=== PATIENT | female | born 1995 ===

== ENCOUNTER 2017-04-23 09:57 | Emergency (ER) | payer BC ==
[2017-04-23 10:44] VITALS: BP 121/68
--- NOTE | 2017-04-23 11:03 | UC ---
Throat Pain/Nasal Roney HPI - HPI Summary HPI Summary: 21 year old female C/o sore throat, plugged ears, & congestion since Tuesday. Throat romero when she swallows. no cough. [ End ] - History of Current Complaint Chief Complaint: UCGeneralIllness Stated Complaint: CONGESTION Time Seen by Provider: 04/23/17 10:56 Hx Obtained From: Patient Hx Last Menstrual Period: 03/30/17 Onset/Duration: Gradual Onset - Allergies/Home Medications Allergies/Adverse Reactions: Allergies Allergy/AdvReac Type Severity Reaction Status Date / Time No Known Allergies Allergy Verified 04/23/17 10:40 Home Medications: Home Medications Drospirenone-Ethinyl Estradiol [Beyaz 3-0.02-0.451 mg] 1 tab PO DAILY 04/23/17 [ History Confirmed 04/23/17] Ibuprofen TAB* [Advil TAB*] 400 mg PO Q6H PRN 04/23/17 [History Confirmed ] PMH/Surg Hx/FS Hx/Imm Hx Previously Healthy: Yes - Surgical History Surgical History: None - Family History Known Family History: Positive: None - Social History Occupation: Student Lives: Dormitory/Roommates Alcohol Use: Weekly Substance Use Type: None Smoking Status (MU): Never Smoked Tobacco Review of Systems Constitutional: Fatigue ENT: Sore Throat, Ear Ache, Nasal Discharge, Sinus Congestion, Sinus Pain/ Tenderness All Other Systems Reviewed And Are Negative: Yes Physical Exam Triage Information Reviewed: Yes Appearance: Well-Appearing, No Pain Distress, Well-Nourished Vital Signs: Initial Vital Signs Temp 98.6 F 04/23/17 10:40 Pulse 93 04/23/17 10:40 Resp 16 04/23/17 10:40 BP 121/68 04/23/17 10:40 Pulse Ox 100 04/23/17 10:40 Vital Signs Reviewed: Yes Eye Exam: Normal ENT Exam: Normal ENT: Positive: Pharyngeal erythema, Nasal congestion, Nasal drainage, TMs normal , TM dull. Negative: Tonsillar swelling, Tonsillar exudate Dental Exam: Normal Neck exam: Normal Neck: Positive: 1 Respiratory Exam: Normal Cardiovascular Exam: Normal Musculoskeletal Exam: Normal Neurological Exam: Normal Psychological Exam: Normal Skin Exam: Normal Throat Pain/Nasal Course/Dx - Course Course Of Treatment: (+) strep - Differential Dx/Diagnosis Differential Diagnosis/HQI/PQRI: Laryngitis, Pharyngitis, Sinusitis, Tonsillitis , URI Provider Diagnoses: Strep pharyngitis Discharge - Discharge Plan Condition: Good Disposition: HOME Prescriptions: Amoxicillin PO (*) [Amoxicillin 875 MG (*)] 875 mg PO BID #20 tab Patient Education Materials: Strep Throat (ED)
== END 2017-04-23 11:28 | disposition home or self-care (01) ==
LOC: UCCORT 09:57
DX: J02.0 Streptococcal pharyngitis (principal)
CPT/HCPCS: 87651; 99202; G0463

== ENCOUNTER 2017-12-24 07:35 | Emergency (ER) | payer BC ==
[2017-12-24 07:51] VITALS: BP 122/74
--- NOTE | 2017-12-24 08:32 | UC ---
Respiratory Complaint HPI - HPI Summary HPI Summary: 22 yo WF c/o barky cough x 2 weeks and left pink eye, denies sick contacts but cough is keeping her up at night. Denies f/c - History of Current Complaint Chief Complaint: UCRespiratory Stated Complaint: COUGH/EYE COMP Time Seen by Provider: 12/24/17 08:08 Hx Obtained From: Patient Hx Last Menstrual Period: 12/16/17 ?: No Onset/Duration: Sudden Onset Timing: Constant Severity Initially: Moderate Severity Currently: Severe Pain Intensity: 0 Character: Cough: Nonproductive Associated Signs And Symptoms: Positive: Negative - Allergies/Home Medications Allergies/Adverse Reactions: Allergies Allergy/AdvReac Type Severity Reaction Status Date / Time No Known Allergies Allergy Verified 12/24/17 07:48 PMH/Surg Hx/FS Hx/Imm Hx - Additional Past Medical History Additional PMH: none Previously Healthy: Yes - Surgical History Surgical History: None - Family History Known Family History: Positive: None - Social History Alcohol Use: Weekly Substance Use Type: None Smoking Status (MU): Never Smoked Tobacco Review of Systems Constitutional: Negative Skin: Negative Eyes: Negative ENT: Negative Respiratory: Cough - x 2 weeks Cardiovascular: Negative Gastrointestinal: Negative Genitourinary: Negative Motor: Negative Neurovascular: Negative Musculoskeletal: Negative Neurological: Negative Psychological: Negative All Other Systems Reviewed And Are Negative: Yes Physical Exam Triage Information Reviewed: Yes Appearance: No Pain Distress Vital Signs: Initial Vital Signs Temp 37.2 C 12/24/17 07:46 Pulse 98 12/24/17 07:46 Resp 16 12/24/17 07:46 BP 122/74 12/24/17 07:46 Pulse Ox 98 12/24/17 07:46 Vital Signs Reviewed: Yes Eyes: Positive: Conjunctiva Inflamed - left, injected with clear yellowish d/c ENT: Positive: Normal ENT inspection Dental Exam: Normal Neck: Positive: Supple Respiratory: Positive: Other: - croupy, seal-like barky cough with mild stridor on expiration. Negative: Crackles, Wheezing Cardiovascular Exam: Normal Abdominal Exam: Normal Musculoskeletal Exam: Normal Neurological Exam: Normal Psychological Exam: Normal Skin Exam: Normal UC Diagnostic Evaluation - Laboratory O2 Sat by Pulse Oximetry: 98 Respiratory Course/Dx - Differential Dx/Diagnosis Provider Diagnoses: Croup. Left conjunctivitis Discharge - Sign-Out/Discharge Documenting (check all that apply): Discharge/Admit/Transfer - Discharge Plan Condition: Stable Disposition: HOME Prescriptions: Ciprofloxacin 0.3% OPTH.MATTHEW* [Cipro 0.3% Opth*] 2 drop LEFT EYE Q4H 7 Days #1 btl predniSONE TAB* [Deltasone TAB*] 10 mg PO DAILY 5 Days #5 tab Patient Education Materials: Croup in Adults (ED) Referrals: Non Staff,Doctor [Primary Care Provider] - - Billing Disposition and Condition Condition: STABLE Disposition: HOME
== END 2017-12-24 08:32 | disposition home or self-care (01) ==
LOC: UCCORT 07:35
DX: J05.0 Acute obstructive laryngitis [croup] (principal); H10.9 Unspecified conjunctivitis
CPT/HCPCS: 99212; G0463